=== PATIENT | female | born 1980 | race Caucasian/White ===

== ENCOUNTER 2016-11-02 19:34 | Emergency (ER) | payer OTHER ==
[~2016-11-02] VITALS: Ht 154.9 cm; Wt 57.6 kg
[2016-11-02] MEDS ORDERED: RANITIDINE HCL150 MG PO (19:45)
[2016-11-02] MEDS ORDERED: SEASONIQUE 0.11 EACH PO (19:45)
[2016-11-02] MEDS ORDERED: VITAMIN D2000 UNIT PO (19:46)
[2016-11-02] MEDS ORDERED: CLARITIN10 M1 PO (19:47)
[2016-11-02] MEDS ORDERED: MULTI-DAY VITA1 EACH PO (19:47)
[2016-11-02] MEDS ORDERED: MERIBIN5 M1 PO (19:48)
[2016-11-02 20:23] LABS: ABSOLUTE BASOPHIL COUNT 0.1 /CUMM (0.0-0.2); ABSOLUTE EOSINOPHIL COUNT 0.1 /CUMM (0.0-0.7); ABSOLUTE LYMPH COUNT 1.2 /CUMM (1.2-3.4); ABSOLUTE MONOCYTE COUNT 0.6 /CUMM (0.10-0.60); BASOPHIL % 0.5 % (0.0-2.0); EOSINOPHIL % 0.8 % (0-5); HEMATOCRIT 44.8 % (37-47); MEAN CORPUSCULAR HGB 31.8 PG (27.0-31.0); MEAN CORPUSCULAR HGB CONC 34.2 G/DL (33.0-37.0); MEAN PLATELET VOLUME 7.5 FL (7.4-10.4); PLATELET COUNT 315 /CUMM (130-400); RED BLOOD CELL CT 4.82 /CUMM (4.20-5.40)
[2016-11-02 20:45] LABS: WHITE BLOOD CELL COUNT 13.9 /CUMM (4.8-10.8)
--- NOTE | 2016-11-02 21:35 | ED GI/GU/ABDOMINAL COMPLAINT ---
History of Present Illness General Chief Complaint: Abdominal Pain/Flank Pain Stated Complaint: SEVERE ABD. PAIN Source: patient Exam Limitations: no limitations Vital Signs & Intake/Output Vital Signs & Intake/Output Vital Signs Date Time Temp Pulse Resp B/P Pulse O2 O2 Flow FiO2 Ox Delivery Rate 11/02 2242 98 81 116/79 98 Room Air 11/02 1939 98.6 116 20 134/84 98 Room Air ED Intake and Output 11/03 0000 11/02 1200 Intake Total 1000 Output Total Balance 1000 Intake, IV 1000 Patient 127 lb Weight Allergies Coded Allergies: No Known Allergies (11/02/16) Reconcile Medications Biotin (Meribin) (Unknown Strength) CAPSULE (Unknown Dose) PO DAILY SUPPLEMENT (Reported) Cholecalciferol (Vitamin D3) (Vitamin D) (Unknown Strength) CAPSULE (Unknown Dose) PO DAILY SUPPLEMENT (Reported) L-Norgest/E.estradion-E.estrad (Seasonique 0.15-0.03-0.01 Tab) 0.15 MG-30 MCG ( 84)/10 MCG (7) TBDSPK.3MO 1 TAB PO DAILY CONTROL (Reported) Loratadine (Claritin) 10 MG TABLET 1 TAB PO DAILY ALLERGIES (Reported) Multivitamin (Multi-Day Vitamins) 1 EACH TABLET 1 TAB PO DAILY SUPPLEMENT ( Reported) Pantoprazole Sodium (Protonix) 40 MG TABLET.DR 1 TAB PO DAILY REFLUX Ranitidine (Ranitidine HCl) 150 MG TABLET 1 TAB PO BID GI (Reported) Triage Note: PT TO TRIAGE WITH C/O EPIGASTRIC PAIN 05/04 SINCE 3PM, +NAUSEA, VOMITINGx4. NO OTHER SYMPTOMS. PT AFEBRILE IN TRIAGE. VSS. Triage Nurses Notes Reviewed? yes ? N Is pt currently ? No HPI: 36-year-old female here with complaints of a centralized abdominal pain that started suddenly this afternoon after eating. She has history of reflux and pelvis with thoracic reflux, shook her usual medication without relief, is still getting worse she vomited multiple times. She has no fever or flulike illness. She has no diarrhea. She had a normal bowel movement earlier today. She had an exploratory laparoscopy for pain which is found to the cause of ovarian cyst. She has no pelvic pain and abnormal vaginal discharge or bleeding, no back pain. Pain is severe and sharp (SAMMI SANTIAGO,JESÚS) Past History Travel History Traveled to [place] past 21 day No Medical History Any Pertinent Medical History? see below for history Gastrointestinal: GERD Renal: ONE KIDNEY Surgical History Surgical History: ex lap Psychosocial History What is your primary language Japanese Tobacco Use: Never used Family History Hx Contributory? No (JESÚS HAY) Review of Systems Review of Systems Constitutional: Reports: see HPI. EENTM: Reports: no symptoms. Respiratory: Reports: no symptoms. Cardiovascular: Reports: no symptoms. GI: Reports: see HPI. Genitourinary: Reports: no symptoms. Musculoskeletal: Reports: no symptoms. Skin: Reports: no symptoms. Neurological/Psychological: Reports: no symptoms. Hematologic/Endocrine: Reports: no symptoms. Immunologic/Allergic: Reports: no symptoms. All Other Systems: Reviewed and Negative (JESÚS HAY) Physical Exam Physical Exam General Appearance: well developed/nourished, anxious, moderate distress Gastrointestinal: normal bowel sounds, soft, tenderness (mid abd tenderness) Comments: Well-developed well-nourished no apparent distress. HEENT: Atraumatic, extraocular motion intact Neck: Supple, no lymphadenopathy Back: Nontender, no CVA tenderness Respiratory: No respiratory distress clear to auscultation bilateral. Heart: Regular rhythm no murmur Extremities: No edema, full range of motion Neuro: Alert and oriented x3 Psych: Mood affect normal, normal memory normal judgment. Skin: Warm and dry, no rash on exposed skin Core Measures ACS in differential dx? No Severe Sepsis Present: No Septic Shock Present: No (JESÚS HAY) Progress Differential Diagnosis: appendicitis, biliary colic, bowel obstruction, colon cancer, cholecystitis, diverticulitis, ectopic , endometritis, esophageal varices, gastritis, hepatitis, hernia, hemorrhoids, ischemic bowel, inflamm bowel dis, intrauterine , kidney stone, Tomeka-Syl tear, ovarian cyst, ovarian torsion, pancreatitis, PID/cervicitis, peptic ulcer, PUD/ GERD, perforated viscous, SBO, threatened AB, UTI/pyelo Plan of Care: Orders Procedure Date/time Status URINALYSIS 11/02 1955 Complete LIPASE 11/02 1955 Complete HUMAN BETA HCG SCREEN 11/02 1955 Complete COMPREHENSIVE METABOLIC PANEL 11/02 1955 Complete CBC WITHOUT DIFFERENTIAL 11/02 1955 Complete AMYLASE 11/02 1955 Complete Laboratory Tests 11/02/169: Urine Color YEL, Urine Clarity HAZY H, Urine pH 7.5, Ur Specific Pollok 1.015, Urine Protein NEG, Urine Ketones TRACE H, Urine Nitrite NEG, Urine Bilirubin NEG, Urine Urobilinogen 0.2, Ur Leukocyte Esterase NEG, Ur Microscopic SEDIMENT EXAMINED, Urine RBC 1-3, Urine WBC 1-3 H, Ur Epithelial Cells FEW, Urine Hemoglobin TRACE-INTACT, Urine Glucose NEG 11/02/16 2011: Anion Gap 15, Estimated GFR > 60, BUN/Creatinine Ratio 16.7, Glucose 95, Calcium 9.4, Total Bilirubin 0.8, AST 19, ALT 21, Alkaline Phosphatase 50, Total Protein 8.1, Albumin 4.6, Globulin 3.5, Albumin/Globulin Ratio 1.3, Amylase 70, Lipase 69, Total Beta HCG NEGATIVE, CBC w Diff NO MAN DIFF REQ, RBC 4.82, MCV 93.0, MCH 31.8 H, RDW 13.0, MPV 7.5, Gran % 86.0 H, Lymphocytes % 8.6 L, Monocytes % 4.1, Eosinophils % 0.8, Basophils % 0.5, Absolute Granulocytes 12.0 H, Absolute Lymphocytes 1.2, Absolute Monocytes 0.6, Absolute Eosinophils 0.1, Absolute Basophils 0.1, PUBS MCHC 34.2 Diagnostic Imaging: Viewed by Me: CT Scan. Discussed w/RAD: CT Scan. Initial ED EKG: none Comments: Treated with IV fluids, IV Zofran and 2 mg IV morphine. Patient reevaluated and still has complaints of pain although much improved. White count is elevated and will evaluate further with CT scan the abdomen and pelvis. CT abdomen and pelvis results as follows: PATIENT: ALEXANDER KEE PRESENT AGE: 36 PATIENT ACCOUNT NO: [id number] : 82 LOCATION: [facility] ORDERING PHYSICIAN: JESÚS SANTIAGO SERVICE DATE: 11/02/16 EXAM TYPE: CAT - CT ABD & PELVIS W IV CONTRAST EXAMINATION: CT ABDOMEN AND PELVIS WITH CONTRAST CLINICAL INFORMATION: Lower abdominal pain. Concern for appendicitis. COMPARISON: None. TECHNIQUE: Multidetector volumetric imaging was performed of the abdomen and pelvis before and after the IV administration of 95 mL of Optiray 320 intravenous contrast. Sagittal and coronal reformatted images were obtained on the technologist's workstation. No oral contrast. DLP: 263.74 mGy-cm. FINDINGS: LUNG BASES: The visualized lung bases are unremarkable. LIVER, GALLBLADDER, AND BILIARY TREE: The liver is normal in size, shape, and attenuation. No focal hepatic lesion or biliary ductal dilatation is present. The gallbladder is unremarkable with no evidence of radiopaque gallstones, gallbladder wall thickening, or obvious pericholecystic inflammatory changes. PANCREAS: Unremarkable. SPLEEN: The spleen is normal in size with a small accessory spleen. ADRENAL GLANDS: Unremarkable. KIDNEYS AND URETERS: There is a solitary left kidney. This is likely a congenital variant. Marked compensatory hypertrophy is noted. No hydronephrosis. No perinephric collection. No left renal calculus. BLADDER: Unremarkable. GASTROINTESTINAL TRACT: The visualized esophagus is normal. The stomach is distended with fluid. Normal small bowel caliber. No mesenteric process noted. A normal appendix is seen in the right paracolic gutter. The terminal ileum is normal in appearance. No pericecal fat stranding. No evidence of colitis. No free air. No free fluid. No abscess. ABDOMINAL WALL: Tiny fat-containing umbilical hernia. LYMPH NODES: Normal. VASCULAR: There is a compensatory enlargement of the solitary left renal artery and vein. The left renal vein is somewhat pinched as it passes between the SMA and aorta. Mesenteric vessels enhance normally. 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 This can be followed up with pelvic ultrasound. The left ovary is not well seen. No pelvic mass. No pelvic adenopathy or free fluid. OSSEOUS STRUCTURES: Unremarkable. IMPRESSION: 1. No acute inflammatory process is identified. No clear etiology for lower abdominal pain. Close clinical correlation and follow-up is advised. 2. Solitary left kidney with compensatory enlargement. 3. 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 Recommend a follow-up with pelvic ultrasound. No adnexal mass seen. Left ovary not identified. 4. A normal appendix is seen in the right paracolic gutter. No pericecal inflammation. No abscess or bowel obstruction. No free air or free fluid. DICTATED BY: CHRYSTAL VEGA MD DATE/TIME DICTATED:11/02/162157 REINSPECTOR:RODERICK DATE/TIME TRANSCRIBED:11/02/162157 Patient given GI cocktail and symptoms resolved. She was given a Protonix for reflux and recommend follow up with GI. She was previously aware of her one kidney and abnormal uterus. (JESÚS HAY) Departure Departure Disposition: HOME OR SELF CARE Condition: Stable Clinical Impression Primary Impression: Reflux gastritis Referrals: TUCKER EDWARDS MD Additional Instructions: TAKE PROTONIX DIRECTED FOR REFLUX. RETURN WITH WOSRENING ABD PAIN, NAUSEA, VOMITING. Departure Forms: Customer Survey General Discharge Information Prescriptions: Current Visit Scripts Pantoprazole Sodium (Protonix) 1 TAB PO DAILY #7 TAB (JESÚS HAY) PA/THERAPIST OCCUPATIONAL Co-Sign Statement Statement: ED Attending supervision documentation- [] I saw and evaluated the patient. I have also reviewed all the pertinent lab results and diagnostic results. I agree with the findings and the plan of care as documented in the PA's/THERAPIST OCCUPATIONAL's documentation. [x] I have reviewed the ED Record and agree with the PA's/THERAPIST OCCUPATIONAL's documentation. [] Additions or exceptions (if any) to the PAs/THERAPIST OCCUPATIONAL's note and plan are summarized below: [] (MANNY RODRIGUEZ,CESAR Sy)
--- NOTE | 2016-11-02 22:26 | CT SCAN REPORT ---
EXAMINATION: CT ABDOMEN AND PELVIS WITH CONTRAST CLINICAL INFORMATION: Lower abdominal pain. Concern for appendicitis. COMPARISON: None. TECHNIQUE: Multidetector volumetric imaging was performed of the abdomen and pelvis before and after the IV administration of 95 mL of Optiray 320 intravenous contrast. Sagittal and coronal reformatted images were obtained on the technologist's workstation. No oral contrast. DLP: 263.74 mGy-cm. FINDINGS: LUNG BASES: The visualized lung bases are unremarkable. LIVER, GALLBLADDER, AND BILIARY TREE: The liver is normal in size, shape, and attenuation. No focal hepatic lesion or biliary ductal dilatation is present. The gallbladder is unremarkable with no evidence of radiopaque gallstones, gallbladder wall thickening, or obvious pericholecystic inflammatory changes. PANCREAS: Unremarkable. SPLEEN: The spleen is normal in size with a small accessory spleen. ADRENAL GLANDS: Unremarkable. KIDNEYS AND URETERS: There is a solitary left kidney. This is likely a congenital variant. Marked compensatory hypertrophy is noted. No hydronephrosis. No perinephric collection. No left renal calculus. BLADDER: Unremarkable. GASTROINTESTINAL TRACT: The visualized esophagus is normal. The stomach is distended with fluid. Normal small bowel caliber. No mesenteric process noted. A normal appendix is seen in the right paracolic gutter. The terminal ileum is normal in appearance. No pericecal fat stranding. No evidence of colitis. No free air. No free fluid. No abscess. ABDOMINAL WALL: Tiny fat-containing umbilical hernia. LYMPH NODES: Normal. VASCULAR: There is a compensatory enlargement of the solitary left renal artery and vein. The left renal vein is somewhat pinched as it passes between the SMA and aorta. Mesenteric vessels enhance normally. 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 This can be followed up with pelvic ultrasound. The left ovary is not well seen. No pelvic mass. No pelvic adenopathy or free fluid. OSSEOUS STRUCTURES: Unremarkable. IMPRESSION: 1. No acute inflammatory process is identified. No clear etiology for lower abdominal pain. Close clinical correlation and follow-up is advised. 2. Solitary left kidney with compensatory enlargement. 3. 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 Recommend a follow-up with pelvic ultrasound. No adnexal mass seen. Left ovary not identified. 4. A normal appendix is seen in the right paracolic gutter. No pericecal inflammation. No abscess or bowel obstruction. No free air or free fluid.
[2016-11-02 22:42] VITALS: BP 116/79
[2016-11-02] MEDS ORDERED: PROTONIX40 M3 PO (23:01)
== END 2016-11-02 23:07 ==
LOC: ERH 19:34
PROVIDERS: Physician Assistant Surgical
DX: K29.70 Gastritis, unspecified, without bleeding (principal)
CPT/HCPCS: 74177; 81001; 96361; 96374; 96375; J2405

== ENCOUNTER 2018-04-28 06:39 | Emergency (ER) | payer OTHER ==
[~2018-04-28 06:39] MED LIST: CLARITIN10 M1 PO; MERIBIN5 M1 PO; MULTI-DAY VITA1 EACH PO; PROTONIX40 M3 PO; RANITIDINE HCL150 MG PO; SEASONIQUE 0.11 EACH PO; VITAMIN D2000 UNIT PO
[2018-04-28 06:56] VITALS: BP 116/72
[2018-04-28] MEDS ORDERED: AMOXICILLIN250 M3 PO (07:08)
--- NOTE | 2018-04-28 07:08 | ED HAND/WRIST INJURY COMPLAINT ---
History of Present Illness General Chief Complaint: Hand or Wrist Injury Stated Complaint: LT THUMB INFECTION X'S 2 DAYS Source: patient Exam Limitations: no limitations Vital Signs & Intake/Output Vital Signs & Intake/Output Vital Signs Date Time Temp Pulse Resp B/P B/P Pulse O2 O2 Flow FiO2 Mean Ox Delivery Rate 04/28 0656 98.6 78 20 116/72 99 Allergies Coded Allergies: No Known Allergies (11/02/16) Reconcile Medications Amoxicillin 250 MG CAPSULE 1 CAP PO TID FINGER INFECTION L-Norgest/E.estradion-E.estrad (Seasonique 0.15-0.03-0.01 Tab) 0.15 MG-30 MCG ( 84)/10 MCG (7) TBDSPK.3MO 1 TAB PO DAILY CONTROL (Reported) Pantoprazole Sodium (Protonix) 40 MG TABLET.DR 1 TAB PO DAILY REFLUX Ranitidine (Ranitidine HCl) 150 MG TABLET 1 TAB PO BID GI (Reported) Triage Note: PER PT 2 DAYS SUSTAINED LAC OR SLICE TO L THUMB THIS AM WOKE UP WITH IT THROBBING, SWELLING TO SIDE OF NAIL SL RED Triage Nurses Notes Reviewed? yes : No Patient currently breastfeeds: No HPI: Patient accidentally cut the side of her left thumb 2 days ago. Since then the pad of her thumb has been swollen and red to touch. The pain is throbbing in nature. The pain increases with any pressure to the area. There is no radiation. There is no radiation of the redness. There are no fevers or chills. She rates the pain at 6 out of 10. Past History Travel History Traveled to [place] past 21 day No Medical History Any Pertinent Medical History? see below for history Neurological: NONE EENT: NONE Cardiovascular: NONE Respiratory: NONE Gastrointestinal: GERD Renal: ONE KIDNEY Musculoskeletal: NONE Psychiatric: NONE Endocrine: NONE Surgical History Surgical History: ex lap Psychosocial History What is your primary language Rwandan Tobacco Use: Never used ETOH Use: occasional use Illicit Drug Use: denies illicit drug use Family History Hx Contributory? No Review of Systems Review of Systems Constitutional: Reports: no symptoms. Respiratory: Reports: no symptoms. Cardiovascular: Reports: no symptoms. Musculoskeletal: Reports: see HPI. Skin: Reports: no symptoms. Neurological/Psychological: Reports: no symptoms. Immunologic/Allergic: Reports: no symptoms. Physical Exam Physical Exam General Appearance: well developed/nourished, alert, awake, anxious, mild distress Eyes: Bilateral: PERRL, EOMI. Neck: normal inspection, supple Cardiovascular/Respiratory: normal breath sounds, normal peripheral pulses, regular rate/rhythm Hand Left: swelling, tender, 1st finger, NO SPREAD OF THE ERYTHMEA Hand Right: normal inspection, normal range of motion Neurologic/Tendon: normal sensation, normal motor functions, normal tendon functions Lymphatic: NO AXIALLRY ADENOPATHY Progress Differential Diagnosis: felon Plan of Care: Current Medications Sig/Petra Start time Last Medication Dose Stop Time Status Admin Ceftriaxone Sodium 1,000 MG ONCE ONE 04/28 715 AC (Rocephin) 04/28 716 Comments: Discussed with the patient the possibility of opening FL on up. Patient wants to try antibiotics prior to having that done. Patient states she will return within 2 days for reevaluation. Departure Departure Disposition: HOME OR SELF CARE Condition: Stable Clinical Impression Primary Impression: Felon of finger of left hand Referrals: Patient Has No Primary Care Dr (PCP/Family) Additional Instructions: RETURN IN 2 DAYS FOR A RE-EVAL TAKE AMOXIL DIRECTED STARTING TOMORROW SINCE YOU RECEIVED A DOSE THREW THE IV THAT WILL BE GOOD FOR 24 HOURS RETURN SOONER IF SYMPTOMS WORSEN OR FOR ANY CONCERNS Departure Forms: Customer Survey General Discharge Information Prescriptions: Current Visit Scripts Amoxicillin 1 CAP PO TID #30 CAP
== END 2018-04-28 07:22 ==
LOC: ERH 06:39
DX: L03.012 Cellulitis of left finger (principal)
CPT/HCPCS: 96374; J0696

== ENCOUNTER 2018-04-30 11:58 | Emergency (ER) | payer OTHER ==
[~2018-04-30] VITALS: Ht 157.5 cm; Wt 56.7 kg
[~2018-04-30 11:58] MED LIST changes: +AMOXICILLIN250 M3 PO
--- NOTE | 2018-04-30 12:52 | ED ANIMAL BITE/WOUND CHECK ---
History of Present Illness General Chief Complaint: Suture Removal/Wound Recheck Stated Complaint: WOUND CHECK OF CELLULITIS? Source: patient Exam Limitations: no limitations Vital Signs & Intake/Output Vital Signs & Intake/Output Vital Signs Date Time Temp Pulse Resp B/P B/P Pulse O2 O2 Flow FiO2 Mean Ox Delivery Rate 04/30 1204 96.2 84 20 125/84 100 Room Air Allergies Coded Allergies: No Known Allergies (11/02/16) Reconcile Medications Amoxicillin 250 MG CAPSULE 1 CAP PO TID FINGER INFECTION L-Norgest/E.estradion-E.estrad (Seasonique 0.15-0.03-0.01 Tab) 0.15 MG-30 MCG ( 84)/10 MCG (7) TBDSPK.3MO 1 TAB PO DAILY CONTROL (Reported) Pantoprazole Sodium (Protonix) 40 MG TABLET.DR 1 TAB PO DAILY REFLUX Ranitidine (Ranitidine HCl) 150 MG TABLET 1 TAB PO BID GI (Reported) Triage Note: PT TO ED FOR WOUND CHECK TO LEFT THUMB. PT WAS DIAGNOSED WITH CELLULITIS TO LEFT THUMB ON 04/28. SENT HOME WITH PO ABX, HAS BEEN TAKING PRESCRIBED. TOLD TO COME BACK FOR WOUND CHECK. Triage Nurses Notes Reviewed? yes Injury Environment: home Severity: mild Severity Numbers: 3 : No Patient currently breastfeeds: No HPI: Patient is a 37-year-old female who presents emergency room with concerns of evaluation of a wound recheck in which patient states that on April 27 she actually her left thumb lateral cuticle region of her nail in which she was complaining of swelling and redness where she was evaluated at [place] emergency room 2 days ago patient received IV antibiotics and was prescribed amoxicillin patient states that the symptoms have improved however is complaining of mild pain and swelling. Patient denies any fevers and otherwise without complaints. Patient has been compliant with her antibiotics taking ibuprofen and Tylenol for pain Past History Travel History Traveled to [place] past 21 day No Medical History Any Pertinent Medical History? see below for history Neurological: NONE EENT: NONE Cardiovascular: NONE Respiratory: NONE Gastrointestinal: GERD Renal: ONE KIDNEY Musculoskeletal: NONE Psychiatric: NONE Endocrine: NONE Surgical History Surgical History: ex lap Psychosocial History What is your primary language Serbian Tobacco Use: Never used ETOH Use: occasional use Illicit Drug Use: denies illicit drug use Family History Hx Contributory? No Review of Systems Review of Systems Constitutional: Reports: no symptoms. EENTM: Reports: no symptoms. Respiratory: Reports: no symptoms. Cardiovascular: Reports: no symptoms. GI: Reports: no symptoms. Genitourinary: Reports: no symptoms. Musculoskeletal: Reports: see HPI. Skin: Reports: see HPI. Neurological/Psychological: Reports: no symptoms. Hematologic/Endocrine: Reports: no symptoms. Immunologic/Allergic: Reports: no symptoms. All Other Systems: Reviewed and Negative Physical Exam Physical Exam General Appearance: no apparent distress, alert, comfortable Head: atraumatic Eyes: Bilateral: normal appearance. Ears, Nose, Throat: hearing grossly normal Neck: normal inspection Respiratory: normal breath sounds Cardiovascular: regular rate/rhythm Peripheral Pulses: 2+ radial (L) Skin: intact Diagram Hands, Dorsum: 1) Noted lateral of the nail mild erythema and tenderness no swelling skin intact no induration or fluctuance Progress Differential Diagnosis: abscess, cellulitis, joint infection Plan of Care: Patient states that the symptoms have improved mild cellulitis is still observed patient was strongly advised to continue antibiotics and to return to emergency room symptoms worsen and she will comply Departure Departure Disposition: HOME OR SELF CARE Condition: Stable Clinical Impression Primary Impression: Cellulitis of thumb, left Referrals: Patient Has No Primary Care Dr (PCP/Family) Additional Instructions: As discussed continue antibiotics of amoxicillin. If symptoms worsen or if he develop any new concerning symptom return to emergency room continue with Tylenol and Motrin for pain Departure Forms: Customer Survey General Discharge Information
[2018-04-30 13:21] VITALS: BP 121/81
== END 2018-04-30 13:22 ==
LOC: ERH 11:58
DX: Z48.01 Encounter for change or removal of surgical wound dressing (principal)